=== PATIENT | male | born 1935 | race Caucasian/White ===

== ENCOUNTER → 2017-07-19 | Outpatient (CLI) | payer MEDICARE, OTHER ==
[~2017-07-19] MED LIST: ALPHAGAN *P* 0.15 ML OPHTH; BETAPACE (GENER80 MG PO; CARDIZEM CD (T120 MG PO; FLOMAX0.4 MG PO; FOLIC ACID1 MG PO; ISMO (MONOKET)20 MG PO; K-TAB 10MEQ10 MEQ PO; LASIX20 MG PO; LATANOPROST2.5 ML OPHTH; LEVAQUIN 250 M250 MG PO; LOPRESSOR50 MG PO; NEOSPORIN1 PKT TOP; NITROSTAT0.4 MG SL; PRILOSEC20 MG PO; PRINIVIL (ZESTRI5 MG PO; PROSCAR5 MG PO; SM SENNA-S TAB1 EACH PO; TYLENOL325 MG PO; XARELTO20 MG PO; ZOCOR10 MG PO
[2017-07-19 17:13] LABS: BASOPHIL % 0.9 %; EOSINOPHIL # 0.2 K/uL (0.0-0.5); EOSINOPHIL % 4.3 %; HEMATOCRIT 39.9 % (33.0-50.0); HEMOGLOBIN 13.3 g/dL (11.0-16.0); IMMATURE GRANULOCYTE % 0.7 %; LYMPHOCYTE # 1.2 K/uL (0.8-4.0); LYMPHOCYTE % 26.9 %; MCH 32.4 pg (27.0-34.0); MCHC 33.3 gm/dL (32.0-36.5); MCV 97.1 fl (83.0-98.0); MONOCYTE # 0.7 K/uL (0.0-1.0); MONOCYTE % 15.4 %; MPV 9.9 fl (9.4-12.4); NEUTROPHIL # (ANC) 2.4 K/uL (1.4-9.0); NEUTROPHIL % 51.8 %; NRBC % 0 /100WBC (0-0.00); PLATELET COUNT 188 K/uL (150-450); RBC 4.11 M/uL (3.50-5.50); RDW-CV 13.4 % (11.9-14.6); WBC 4.6 K/uL (4.0-11.0)
[2017-07-19 17:27] LABS: ALBUMIN 3.6 gm/dL (3.5-5.0); ANION GAP 11.9 (10.0-19.0); CALCIUM 8.7 mg/dL (8.5-10.5); POTASSIUM 3.9 mMol/L (3.7-5.1); TOTAL BILIRUBIN 0.6 mg/dL (0.0-1.5); TOTAL PROTEIN 6.8 g/dL (6.0-8.4)
== END ==
LOC: LNHI 16:51
PROVIDERS: Internal Medicine Cardiovascular Disease
DX: I10 Essential (primary) hypertension (principal); I48.0 Paroxysmal atrial fibrillation; I70.218 Atherosclerosis of native arteries of extremities with intermittent claudication, other extremity; R53.83 Other fatigue; E78.5 Hyperlipidemia, unspecified